=== PATIENT | female | born 1955 | race Caucasian/White ===

== ENCOUNTER 2019-07-17 11:18 | Outpatient (CLI) | payer MEDICARE, SELFPAY ==
--- NOTE | 2019-07-17 09:30 | DI.RAD_ITS ---
EXAM: XR WRIST RT COMPLETE CLINICAL HISTORY: ?DRUJ injury, radial neck frx with distal pain TECHNIQUE: COMPARISON: No exams were available for comparison FINDINGS: Three views were obtained. There are marked degenerative changes of the carpus particularly at the n avicular greater multangular and greater multangular 1st metacarpal joints. The requisition raises a possibility of an injury at the distal radioulnar joint. DRUJ alignment appears essentially intact, no fracture seen. If there is a high clinical suspicion of DRUJ injury additional evaluation with M R may be considered. IMPRESSION:
== END 2019-07-17 11:38 ==
PROVIDERS: PCP Family Medicine; Referring Provider Family Medicine; Visit Provider Student in an Organized Health Care Education/Training Program
DX: S52.134A Nondisplaced fracture of neck of right radius, initial encounter for closed fracture; W00.0XXA Fall on same level due to ice and snow, initial encounter; M25.531 Pain in right wrist; I10 Essential (primary) hypertension
CPT/HCPCS: 99203; 73110; L3908

== ENCOUNTER 2019-07-31 13:45 | Outpatient (CLI) | payer MEDICARE, SELFPAY ==
--- NOTE | 2019-07-31 13:50 | DI.RAD_ITS ---
EXAM: XR ELBOW RT COMPLETE CLINICAL HISTORY: F/U FRACTURE. TECHNIQUE: 2D digital imaging was performed. COMPARISON: XR ELBOW 2 VIEW RIGHT from 07/12/2019 FINDINGS: BONES: There is no change in alignment of the nondisplaced right radial neck fracture. Callus format ion has developed about the fracture consistent with some interval healing. No bony destructive lesi on is seen. JOINTS: The elbow is normally aligned. SOFT TISSUE: Normal. IMPRESSION: Healing right radial neck fracture. DATA REPOSITORY: RADIATION DOSE DELIVERED:
--- NOTE | 2019-07-31 13:50 | DI.RAD_ITS ---
EXAM: XR WRIST RT COMPLETE CLINICAL HISTORY: F/U FRACTURE. TECHNIQUE: 2D digital imaging was performed. COMPARISON: XR WRIST RT COMPLETE from 07/17/2019 FINDINGS: BONES: No acute fracture is present. No bony destructive lesion is seen. JOINTS: The carpal bones are normally aligned. There are degenerative changes seen at the wrist, part icularly the 1st carpometacarpal joint SOFT TISSUE: Normal. IMPRESSION: No evidence of an acute fracture. DATA REPOSITORY: RADIATION DOSE DELIVERED:
== END 2019-07-31 14:05 ==
PROVIDERS: PCP Family Medicine; Referring Provider Family Medicine; Visit Provider Student in an Organized Health Care Education/Training Program
DX: M25.531 Pain in right wrist (principal); S52.134D Nondisplaced fracture of neck of right radius, subsequent encounter for closed fracture with routine healing; M18.11 Unilateral primary osteoarthritis of first carpometacarpal joint, right hand; X58.XXXD Exposure to other specified factors, subsequent encounter; I10 Essential (primary) hypertension
CPT/HCPCS: 99213; 73080; 73110

== ENCOUNTER 2019-09-25 14:19 | Outpatient (CLI) | payer MEDICARE, SELFPAY ==
--- NOTE | 2019-09-25 10:30 | DI.RAD_ITS ---
EXAM: XR WRIST RT LIMITED CLINICAL HISTORY: pain in wrist TECHNIQUE: 2D digital imaging was performed. COMPARISON: XR WRIST RT COMPLETE from 07/17/2019 FINDINGS: There is deformity of the posterior aspect of the distal radius with distal spurring. There is mild widening of scapholunate distance. Degenerative changes are again noted in the scaphoid multangular and 1st carpal metacarpal joints. There is mild dorsal tilt of the lunate. No acute fractures are s een. IMPRESSION: Widening of the scapholunate joint. Old distal radial deformity. Degenerative changes.
--- NOTE | 2019-09-25 10:49 | DI.RAD_ITS ---
EXAM: XR ELBOW RT COMPLETE CLINICAL HISTORY: radial neck fracture TECHNIQUE: 2D digital imaging was performed. COMPARISON: XR WRIST RT COMPLETE from 07/31/2019 XR ELBOW RT COMPLETE from 07/31/2019 FINDINGS: There has been no change in the alignment of the proximal radial fracture. There is increased callus formation when compared with the previous exam. No new findings are identified.
== END 2019-09-25 14:39 ==
PROVIDERS: PCP Family Medicine; Referring Provider Family Medicine; Visit Provider Student in an Organized Health Care Education/Training Program
DX: S52.134D Nondisplaced fracture of neck of right radius, subsequent encounter for closed fracture with routine healing; M18.11 Unilateral primary osteoarthritis of first carpometacarpal joint, right hand; M19.031 Primary osteoarthritis, right wrist; W19.XXXD Unspecified fall, subsequent encounter; M25.331 Other instability, right wrist; I10 Essential (primary) hypertension
CPT/HCPCS: 99213; 73080; 73100